=== PATIENT | female | born 1985 | race Caucasian/White ===

== ENCOUNTER 2022-11-24 18:22 | Outpatient (CLI) | payer BC, SELFPAY ==
[2022-11-24 23:24] LABS: Hepatitis C Virus Antibody* Negative (Negative)
[2022-11-27 15:54] LABS: Hepa B Virus Surf Ag Conf Non Confirmed (Non Confirmed)
[2022-11-27 17:15] LABS: HIV Serologic Interpretation HIV Abs Neg; HIV-1 Antibody Negative (Negative); HIV-2 Antibody Negative (Negative)
[2022-11-29 00:46] LABS: HIV-1 Qnt NAAT copies/mL Not Detected log cpy/mL
== END 2022-11-24 18:23 | disposition home or self-care (01) ==
PROVIDERS: PCP Physician Assistant Medical; Visit Provider Nurse Practitioner Family
DX: Z77.21 Contact with and (suspected) exposure to potentially hazardous body fluids (principal)
CPT/HCPCS: 86701; 86702; 86803; 87341; 87536

== ENCOUNTER 2023-10-05 08:22 | Outpatient (CLI) | payer BC, SELFPAY | END 2023-10-05 08:23 | disposition home or self-care (01) | PROVIDERS: PCP Physician Assistant Medical; Visit Provider Family Medicine | DX: Z13.220 Encounter for screening for lipoid disorders (principal); Z13.228 Encounter for screening for other metabolic disorders | CPT/HCPCS: 80053; 80061 ==

== ENCOUNTER 2024-12-23 15:36 | Outpatient (CLI) | payer BC, SELFPAY ==
[2024-12-23 23:04] LABS: Chlamydia DNA Amplified* NOT DETECTED (No Detected); GC DNA Amplified* NOT DETECTED (No Detected)
== END 2024-12-23 15:37 | disposition home or self-care (01) ==
PROVIDERS: PCP Family Medicine; Visit Provider Family Medicine
DX: Z11.3 Encounter for screening for infections with a predominantly sexual mode of transmission (principal); Z11.59 Encounter for screening for other viral diseases; Z11.4 Encounter for screening for human immunodeficiency virus [HIV]; Z13.228 Encounter for screening for other metabolic disorders; Z13.220 Encounter for screening for lipoid disorders
CPT/HCPCS: 80053; 80061; 86592; 86703; 86803; 87491; 87591